=== PATIENT | female | born 1995 | race Caucasian/White ===

== ENCOUNTER → 2022-09-07 | Outpatient (CLI) | payer OTHER ==
[2022-09-07 17:10] LABS: URINE PREG TEST NEGATIVE (NEGATIVE)
== END ==
LOC: M WUC 11:41
PROVIDERS: ATTEND Physician Assistant
DX: Z30.011 Encounter for initial prescription of contraceptive pills (principal)

== ENCOUNTER → 2023-06-01 | Outpatient (CLI) | payer OTHER | LOC: M RAD 08:12 | PROVIDERS: ATTEND Physician Assistant | DX: I83.813 Varicose veins of bilateral lower extremities with pain (principal) ==

== ENCOUNTER 2024-04-03 15:05 | Inpatient (IN) | payer OTHER ==
[~2024-04-03] VITALS: Ht 172.7 cm; Wt 69.7 kg
[2024-04-03] MEDS ORDERED: SERT-141 PO (15:12)
[2024-04-03] MEDS ORDERED: PRENTAB53 PO (15:12)
[2024-04-03] MEDS: diphenhydrAMINE 50MG/ML VIAL IV ONE (15:20)
[2024-04-03] MEDS: NS 1,000 ML IV ONE (15:26)
[2024-04-03] MEDS: FAMOTIDINE 20MG/2ML VIAL IVP ONE (15:26)
[2024-04-03] MEDS: EPINEPHrine INJ 1 MG/ML 1ML AMP IM STA (15:26)
[2024-04-03] MEDS: methylPREDNISolone 125MG 2ML VIAL IV ONE (15:27)
[2024-04-03 15:33] LABS: BASO % 0.1 % (0.0-1.0); EOS # 0.1 10^3/uL (0.0-0.5); HEMATOCRIT 33.5 % (36.0-47.0); HEMOGLOBIN 11.1 g/dl (12.0-15.5); LYMPH # 1.7 10^3/uL (1.5-5.0); LYMPH % 17.5 % (24.0-44.0); MEAN CORPUSCULAR HEMOGLOBIN 26.6 pg (27.0-33.0); MEAN CORPUSCULAR HGB CONC 33.1 g/dl (32.0-36.5); MEAN CORPUSCULAR VOLUME 80.1 fl (80.0-96.0); MONO # 0.5 10^3/uL (0.0-0.8); MONO % 4.9 % (2.0-8.0); NEUTROPHILS # 7.5 10^3/uL (1.5-8.5); NEUTROPHILS % 76.2 % (36.0-66.0); PLATELET COUNT, AUTOMATED 284 10^3/uL (150-450); RED BLOOD COUNT 4.18 10^6/uL (4.00-5.40); WHITE BLOOD COUNT 9.8 10^3/uL (4.0-10.0)
[2024-04-03] MEDS: RACEPINEPHrine 2.25% UD INHAL INH ONE (15:33)
[2024-04-03] MEDS: ALBUTEROL SULFATE 2.5MG/0.5ML INH NEB SOLN NEB SCH (15:34)
[2024-04-03 16:06] LABS: ALBUMIN 3.8 G/DL (3.2-5.2); ALKALINE PHOSPHATASE 42 U/L (46-116); ALT/SGPT 13 U/L (7.0-40); AST/SGOT 12 U/L (<34); BILIRUBIN,DIRECT < 0.1 MG/DL (<0.4); BILIRUBIN,TOTAL 0.3 MG/DL (0.3-1.2); BLOOD UREA NITROGEN 12 MG/DL (9-23); CALCIUM LEVEL 9.2 MG/DL (8.5-10.1); CARBON DIOXIDE LEVEL 24 MMOL/L (20-31); CHLORIDE LEVEL 104 MMOL/L (98-107); CREATININE FOR GFR 0.43 MG/DL (0.55-1.30); GLOMERULAR FILTRATION RATE > 60.0 (>60); GLUCOSE, FASTING 104 MG/DL (60-100); POTASSIUM SERUM 3.7 MMOL/L (3.5-5.1); SODIUM LEVEL 134 MMOL/L (136-145); TOTAL PROTEIN 6.9 G/DL (5.7-8.2)
[2024-04-03] MEDS ORDERED: ZOLO100T PO (17:15)
[2024-04-03] MEDS ORDERED: HOME MED LIST COMPLETE! XX SCH (17:20)
[2024-04-03 17:26] LABS: HCG, SERUM QUALITATIVE POSITIVE (NEGATIVE)
[2024-04-03 17:49] LABS: HCG, SERUM QUANTITATIVE 180037.4 MIU/ML (<4.2)
[2024-04-03] MEDS ORDERED: diphenhydrAMINE 50MG/ML VIAL IV PRN (18:40)
[2024-04-04] MEDS: FAMOTIDINE IV BAG 20 MG in IV 1 EA IV SCH (04:34)
[2024-04-04] MEDS: ENOXAPARIN 40MG/0.4ML SYRINGE (J1650 PER 10MG) SC SCH (09:00)
[2024-04-04] MEDS: SERTRALINE 100 MG TAB PO SCH (10:01)
[2024-04-04] MEDS: methylPREDNISolone 125MG 2ML VIAL IV SCH (10:01)
[2024-04-04 13:00] VITALS: BP 110/69; TEMP 98.6; O2SAT 98
[2024-04-04] MEDS ORDERED: FAMO20TA PO (13:48)
[2024-04-04] MEDS ORDERED: EPIP0.3I2 IM (13:48)
[2024-04-04] MEDS ORDERED: PRED20TA PO (13:48)
[2024-04-04] MEDS ORDERED: BENA25CA4 PO (13:48)
== END 2024-04-04 16:03 | disposition home or self-care (01) | DRG 916 ==
LOC: M ED 15:05 → M ED INP 16:56
PROVIDERS: ADMIT Internal Medicine Pulmonary Disease; ATTEND Internal Medicine Pulmonary Disease
PROC: 0CJS8ZZ Inspection of Larynx, Via Natural or Artificial Opening Endoscopic (ICD-10-PCS; principal; 2024-04-03)
DX: T78.01XA Anaphylactic reaction due to peanuts, initial encounter (principal); F41.9 Anxiety disorder, unspecified; F32.A Depression, unspecified; Z79.899 Other long term (current) drug therapy; Z91.010 Allergy to peanuts

== ENCOUNTER → 2024-04-15 | Outpatient (CLI) | payer OTHER ==
[~2024-04-15] MED LIST: BENA25CA4 PO; EPIP0.3I2 IM; FAMO20TA PO; PRED20TA PO; PRENTAB53 PO; SERT-141 PO; ZOLO100T PO
[2024-04-15 13:23] LABS: HEMATOCRIT 35.7 % (36.0-47.0); HEMOGLOBIN 11.2 g/dl (12.0-15.5); MEAN CORPUSCULAR HEMOGLOBIN 26.2 pg (27.0-33.0); MEAN CORPUSCULAR HGB CONC 31.4 g/dl (32.0-36.5); MEAN CORPUSCULAR VOLUME 83.4 fl (80.0-96.0); PLATELET COUNT, AUTOMATED 247 10^3/uL (150-450); RED BLOOD COUNT 4.28 10^6/uL (4.00-5.40); WHITE BLOOD COUNT 8.3 10^3/uL (4.0-10.0)
[2024-04-15 14:24] LABS: GC DNA AMPLIFICATION NEGATIVE (NEGATIVE)
[2024-04-15 14:32] LABS: HIV 1&2 SCREEN NEGATIVE (NEGATIVE)
[2024-04-15 14:39] LABS: HEPATITIS C VIRUS ABY INDEX 0.07 INDEX (<0.8)
== END ==
LOC: M PLALAB 10:52
PROVIDERS: ATTEND Specialist
DX: Z34.81 Encounter for supervision of other normal pregnancy, first trimester (principal)

== ENCOUNTER → 2024-06-11 | Outpatient (CLI) | payer OTHER | LOC: M WHC 13:44 | PROVIDERS: ATTEND Obstetrics & Gynecology | DX: Z34.80 Encounter for supervision of other normal pregnancy, unspecified trimester (principal) ==

== ENCOUNTER → 2024-08-19 | Outpatient (CLI) | payer OTHER | LOC: M PLALAB 09:29 | DX: F41.1 Generalized anxiety disorder (principal); Z91.010 Allergy to peanuts; Z53.9 Procedure and treatment not carried out, unspecified reason ==

== ENCOUNTER → 2024-08-19 | Outpatient (CLI) | payer OTHER ==
[2024-08-19 13:07] LABS: HEMATOCRIT 36.4 % (36.0-47.0); MEAN CORPUSCULAR HEMOGLOBIN 31.2 pg (27.0-33.0); MEAN CORPUSCULAR VOLUME 94.5 fl (80.0-96.0); PLATELET COUNT, AUTOMATED 175 10^3/uL (150-450); RED BLOOD COUNT 3.85 10^6/uL (4.00-5.40); WHITE BLOOD COUNT 7.9 10^3/uL (4.0-10.0)
[2024-08-19 13:45] LABS: ALBUMIN 2.9 G/DL (3.2-5.2); ALKALINE PHOSPHATASE 57 U/L (35-104); ALT/SGPT 20 U/L (7.0-40); AST/SGOT 19 U/L (<34); BILIRUBIN,TOTAL 0.4 MG/DL (0.3-1.2); BLOOD UREA NITROGEN 9 MG/DL (9-23); CALCIUM LEVEL 8.6 MG/DL (8.5-10.1); CARBON DIOXIDE LEVEL 27 MMOL/L (20-31); CHLORIDE LEVEL 103 MMOL/L (98-107); CREATININE FOR GFR 0.45 MG/DL (0.55-1.30); GLOMERULAR FILTRATION RATE > 60.0 (>60); GLUCOSE CHALLENGE TEST 1 HOUR 115 MG/DL (LESS THAN 140); GLUCOSE, FASTING 115 MG/DL (60-100); POTASSIUM SERUM 3.7 MMOL/L (3.5-5.1); SODIUM LEVEL 140 MMOL/L (136-145); TOTAL PROTEIN 6.4 G/DL (5.7-8.2)
[2024-08-19 14:15] LABS: HIV 1&2 SCREEN NEGATIVE (NEGATIVE)
[2024-08-19 14:23] LABS: HEPATITIS C VIRUS ABY INDEX 0.03 INDEX (<0.8)
[2024-08-19 14:24] LABS: GC DNA AMPLIFICATION NEGATIVE (NEGATIVE)
== END ==
LOC: M PLALAB 09:31
PROVIDERS: ATTEND Nurse Practitioner Family
DX: Z34.02 Encounter for supervision of normal first pregnancy, second trimester (principal)

== ENCOUNTER → 2024-08-29 | Outpatient (CLI) | payer OTHER | LOC: M WHC 12:52 | PROVIDERS: ATTEND Obstetrics & Gynecology | DX: Z34.92 Encounter for supervision of normal pregnancy, unspecified, second trimester (principal) ==

== ENCOUNTER → 2024-10-16 | Outpatient (REF) | payer OTHER | LOC: M SFHCWAGY 12:56 | PROVIDERS: ATTEND Nurse Practitioner Family | DX: Z36.89 Encounter for other specified antenatal screening (principal); Z3A.37 37 weeks gestation of pregnancy ==

== ENCOUNTER 2024-11-09 02:25 | Emergency (ER) | payer OTHER | END 2024-11-09 02:31 | disposition admitted as inpatient to this hospital (09) | LOC: M ED 02:25 | DX: Z53.21 Procedure and treatment not carried out due to patient leaving prior to being seen by health care provider (principal) ==

== ENCOUNTER 2024-11-09 02:33 | Inpatient (IN) | payer OTHER ==
[~2024-11-09] VITALS: Ht 172.7 cm; Wt 84.1 kg
[2024-11-09] VITALS (28 sets, daily range): BP systolic 81–164; BP diastolic 51–107; O2SAT 97
[2024-11-09] MEDS ORDERED: EPIDURAL/PCA KEYS XX PRN (03:05)
[2024-11-09] MEDS ORDERED: NALOXONE INJ 0.4MG/1ML VIAL IV PRN (03:05)
[2024-11-09] MEDS ORDERED: ePHEDrine SULFATE 25 MG/5 ML(5MG/ML) SYRINGE IVP PRN (03:05)
[2024-11-09] MEDS ORDERED: LIDOCAINE 1% MDV 20ML VIAL INFIL PRN (03:05)
[2024-11-09] MEDS ORDERED: OXYTOCIN DRIP 30 UNITS in IV 1 EA IV PRN (03:05)
[2024-11-09] MEDS ORDERED: diphenhydrAMINE 50MG/ML VIAL IV PRN (03:05)
[2024-11-09 03:32] LABS: HEMATOCRIT 40.3 % (36.0-47.0); HEMOGLOBIN 13.8 g/dl (12.0-15.5); MEAN CORPUSCULAR HEMOGLOBIN 30.9 pg (27.0-33.0); MEAN CORPUSCULAR HGB CONC 34.2 g/dl (32.0-36.5); MEAN CORPUSCULAR VOLUME 90.2 fl (80.0-96.0); PLATELET COUNT, AUTOMATED 183 10^3/uL (150-450); RED BLOOD COUNT 4.47 10^6/uL (4.00-5.40); WHITE BLOOD COUNT 11.4 10^3/uL (4.0-10.0)
[2024-11-09] MEDS: ONDANSETRON 4MG 2ML VIAL IV PRN (03:38)
[2024-11-09] MEDS: LR 500 ML IV PRN (03:38)
[2024-11-09] MEDS: FENTANYL/ROPIVACAINE/NACL BAG 100 ML EPIDURAL SCH (04:20)
[2024-11-09] MEDS ORDERED: HOME MED LIST COMPLETE! XX SCH (04:45)
[2024-11-09 06:34] LABS: HIV 1&2 SCREEN NEGATIVE (NEGATIVE)
[2024-11-09] MEDS: OXYTOCIN DRIP 30 UNITS in IV 1 EA IV SCH (10:02)
[2024-11-09] MEDS ORDERED: ACETAMINOPHEN 325 MG TAB PO PRN (11:40)
[2024-11-09] MEDS ORDERED: ACETAMINOPHEN 500 MG TAB PO PRN (11:40)
[2024-11-09] MEDS ORDERED: OXYTOCIN DRIP 30 UNITS in IV 1 EA IV SCH (11:40)
[2024-11-09] MEDS ORDERED: METHYLERGONOVINE MALEATE 0.2 MG TAB PO PRN (11:40)
[2024-11-09] MEDS ORDERED: DOCUSATE SODIUM 100MG CAPSULE PO PRN (11:40)
[2024-11-09] MEDS ORDERED: RHOGAM 300MCG (1500IU) INJ IM SCH (11:40)
[2024-11-09 11:48] LABS: CORD GAS ABE A -3.9; CORD GAS ABE V -2.2; CORD GAS HCO3 A 24.1 MMOL/L; CORD GAS HCO3 V 24.1 MMOL/L; CORD GAS O2 SAT A 26.1 %; CORD GAS O2 SAT V 54.2 %; CORD GAS PCO2 A 55.5 mmHg; CORD GAS PCO2 V 46.6 mmHg; CORD GAS PH A 7.255 UNITS; CORD GAS PH V 7.331 UNITS; CORD GAS PO2 A 14.4 mmHg; CORD GAS PO2 V 22.4 mmHg; CORD GAS SBC A 19.5 MMOL/L; CORD GAS SBC V 21.5 MMOL/L; CORD GAS TCO2 A 25.8 MMOL/L; CORD GAS TCO2 V 25.5 MMOL/L
[2024-11-09] MEDS: DIBUCAINE 1% OINTMENT 30GM TOP PRN (14:26)
[2024-11-09] MEDS: IBUPROFEN 600MG TAB PO PRN (23:31)
[2024-11-10 06:00] VITALS: BP 115/65; O2SAT 97
[2024-11-10] MEDS: PRENATAL VITAMINS CHEWABLE TABLET PO SCH (09:00)
[2024-11-10 18:00] VITALS: BP 108/70; O2SAT 96
[2024-11-11 06:00] VITALS: BP 117/74; O2SAT 98
[2024-11-11 08:45] VITALS: BP 117/74; TEMP 98.1; O2SAT 98
[2024-11-11] MEDS: SERTRALINE 100 MG TAB PO SCH (08:52)
[2024-11-11] MEDS: MEASLES,MUMPS,RUBELLA VACCINE INJ (MMR-II) SC.IMMUN ONE (09:00)
[2024-11-11] MEDS: IBUPROFEN 800 MG TAB PO PRN (09:25)
[2024-11-11] MEDS ORDERED: IBUP80TA PO (11:19)
[2024-11-11] MEDS ORDERED: ACET-683 PO (11:19)
== END 2024-11-11 13:30 | disposition home or self-care (01) | DRG 807 ==
LOC: M LDO 02:33 → M LDI 02:55 → M OBS 14:02
PROVIDERS: ADMIT Specialist; ATTEND Obstetrics & Gynecology
PROC: 10E0XZZ Delivery of Products of Conception, External Approach (ICD-10-PCS; principal; 2024-11-09)
PROC: 0KQM0ZZ Repair Perineum Muscle, Open Approach (ICD-10-PCS; 2024-11-09)
PROC: 10907ZC Drainage of Amniotic Fluid, Therapeutic from Products of Conception, Via Natural or Artificial Opening (ICD-10-PCS; 2024-11-09)
DX: O48.0 Post-term pregnancy (principal); Z37.0 Single live birth; Z3A.40 40 weeks gestation of pregnancy; Z91.010 Allergy to peanuts; Z79.899 Other long term (current) drug therapy; O69.82X0 Labor and delivery complicated by other cord entanglement, without compression, not applicable or unspecified; O70.1 Second degree perineal laceration during delivery